=== PATIENT | male | born 1995 | race Hispanic/Latino ===

== ENCOUNTER 2024-02-07 12:39 | Inpatient (IN) | payer OTHER ==
[~2024-02-07] VITALS: Ht 172.7 cm; Wt 86.2 kg
[2024-02-07 12:58] LABS: BASOPHILS # (AUTO) 0.12 K/uL (0.00-0.20); BASOPHILS % (AUTO) 0.7 % (0.0-5.0); EOSINOPHILS % (AUTO) 0.6 % (0.0-8.0); HEMATOCRIT 54.4 % (42-54); IMMATURE GRANULOCYTE ABSOLUTE 0.11 K/uL (0-1); LYMPHOCYTES # (AUTO) 2.4 K/uL (1.0-4.8); LYMPHOCYTES % (AUTO) 13.4 % (21.0-51.0); MEAN CORPUSCULAR HEMOGLOBIN 26.5 pg (27.0-33.0); MEAN CORPUSCULAR HGB CONC 33.1 g/dL (32.0-36.0); MONOCYTES # (AUTO) 0.9 K/uL (0.1-1.0); MONOCYTES % (AUTO) 4.8 % (3.0-13.0); NEUTROPHILS # (AUTO) 14.5 K/uL (1.8-7.7); NEUTROPHILS % (AUTO) 79.9 % (40.0-77.0); PLATELET COUNT (AUTO) 392 K/uL (130-400); RED CELL DISTRIBUTION WIDTH 14.7 % (11.0-15.5); WHITE BLOOD COUNT (AUTO) 18.2 K/uL (4.8-10.8)
[2024-02-07] MEDS: 0.9%NACL 1000ML 2,052 ML IV ONE (13:00)
[2024-02-07 13:02] LABS: CREATININE 2.1 mg/dL (0.5-1.3); POTASSIUM 3.3 mmol/L (3.5-5.1)
[2024-02-07 13:17] LABS: ALBUMIN 5.3 g/dL (3.5-5.0); BILIRUBIN,TOTAL 0.7 mg/dL (0.2-1.0); TOTAL PROTEIN, SERUM 10.5 g/dL (6.0-8.3)
[2024-02-07] MEDS: POTASSIUM BICARB/CIT AC 25 MEQ TABLET.EFF PO ONE (13:42)
[2024-02-07 14:41] LABS: APPEARANCE,URINE CLOUDY (CLEAR); BILIRUBIN,URINE NEGATIVE (NEGATIVE); COLOR,URINE YELLOW (YELLOW); GLUCOSE, URINE (UA) NEGATIVE (NEGATIVE); KETONES,URINE NEGATIVE (NEGATIVE); LEUKOCYTE ESTERASE ,URINE NEGATIVE Leu/uL (NEGATIVE); NITRATE,URINE NEGATIVE (NEGATIVE); OCCULT BLOOD,URINE NEGATIVE (NEGATIVE); PH,URINE 5.5 (5.0-8.0); PROTEIN,URINE 30 mg/dL (NEGATIVE); UROBILINOGEN,URINE 0.2 mg/dL (0.2-1.0)
[2024-02-07] MEDS: CEFTRIAXONE 2GM VIAL IVPB ONE (15:09)
[2024-02-07 15:12] LABS: AMPHET/METH SCREEN,URINE NEGATIVE (NEGATIVE); BARBITURATE SCREEN, URINE NEGATIVE (NEGATIVE); BENZODIAZEPINES SCREEN,URINE NEGATIVE (NEGATIVE); CANNABINOID SCREEN,URINE POSITIVE (NEGATIVE); COCAINE SCREEN,URINE NEGATIVE (NEGATIVE); OPIATE SCREEN,URINE NEGATIVE (NEGATIVE); PHENCYCLIDINE SCREEN,URINE NEGATIVE (NEGATIVE)
[2024-02-07 15:56] LABS: ADD UA MICROSCOPIC YES
[2024-02-07] MEDS ORDERED: ACETAMINOPHEN 500 MG TABLET PO PRN (16:00)
[2024-02-07 16:01] LABS: MUCUS,URINE RARE LPF (None Seen); OTHER CASTS, URINE 15 /LPF (None Seen); RBC,URINE 0-1 /HPF (0-1)
[2024-02-07] MEDS: DOXYCYCLINE 100MG+NS 250ML 250 ML IV SCH (16:05)
[2024-02-07] MEDS: 0.9%NACL 1000ML 1,000 ML IV SCH (16:06)
[2024-02-07 17:01] LABS: HEMOGLOBIN A1C 5.4 % (4.0-6.0)
[2024-02-07 17:14] LABS: SARS-CoV-2, RNA, NAAT NEGATIVE SARS CoV-2 (NEGATIVE)
[2024-02-07 17:22] LABS: INFLUENZA TYPE A Negative For Type A (NEGATIVE); INFLUENZA TYPE B Negative For Type B (NEGATIVE)
[2024-02-07 17:23] LABS: CREATININE,URINE RANDOM 256.48 mg/dL (30-135)
[2024-02-07 18:00] VITALS: BP 138/78; PULSE 79; RESP 18
[2024-02-07 19:00] VITALS: BP 157/68; PULSE 58; RESP 16
[2024-02-07] MEDS: Vitamin B Complex/Vit C/Folic Acid PO ONE (20:00)
[2024-02-07 23:00] VITALS: BP 116/71; PULSE 70; RESP 16
[2024-02-08 03:00] VITALS: BP 133/69; PULSE 91; RESP 16
[2024-02-08 05:08] LABS: BASOPHILS # (AUTO) 0.09 K/uL (0.00-0.20); BASOPHILS % (AUTO) 0.8 % (0.0-5.0); EOSINOPHILS # (AUTO) 0.36 K/uL (0.00-0.70); EOSINOPHILS % (AUTO) 3.3 % (0.0-8.0); IMMATURE GRANULOCYTE ABSOLUTE 0.04 K/uL (0-1); LYMPHOCYTES # (AUTO) 3.7 K/uL (1.0-4.8); LYMPHOCYTES % (AUTO) 33.9 % (21.0-51.0); MEAN CORPUSCULAR HEMOGLOBIN 26.8 pg (27.0-33.0); MEAN CORPUSCULAR HGB CONC 32.3 g/dL (32.0-36.0); MONOCYTES # (AUTO) 0.7 K/uL (0.1-1.0); MONOCYTES % (AUTO) 6.8 % (3.0-13.0); NEUTROPHILS # (AUTO) 5.9 K/uL (1.8-7.7); NEUTROPHILS % (AUTO) 54.8 % (40.0-77.0); PLATELET COUNT (AUTO) 304 K/uL (130-400); RED BLOOD CELL COUNT(AUTO) 5.18 MIL/uL (4.50-6.20); RED CELL DISTRIBUTION WIDTH 13.8 % (11.0-15.5); WHITE BLOOD COUNT (AUTO) 10.8 K/uL (4.8-10.8)
[2024-02-08 06:34] LABS: ALBUMIN 3.1 g/dL (3.5-5.0); BILIRUBIN,TOTAL 0.3 mg/dL (0.2-1.0); MAGNESIUM 1.9 mg/dL (1.80-2.40); PHOSPHORUS 2.8 mg/dL (2.5-4.9); POTASSIUM 3.6 mmol/L (3.5-5.1); TOTAL PROTEIN, SERUM 6.5 g/dL (6.0-8.3)
[2024-02-08 08:00] VITALS: BP 126/69; PULSE 80; RESP 18; O2SAT 99
[2024-02-08] MEDS: CEFTRIAXONE 2GM VIAL IVPB SCH (08:29)
[2024-02-08] MEDS: THIAMINE HCL 100 MG/ML 2ML VIAL IM SCH (08:29)
[2024-02-08] MEDS: FAMOTIDINE 20MG TAB PO SCH (11:00)
[2024-02-08] MEDS: 0.9%NACL 1000ML 1,000 ML IV SCH (11:00)
[2024-02-08 12:00] VITALS: BP 129/65; PULSE 72; RESP 18
[2024-02-08 16:00] VITALS: BP 122/74; PULSE 70; RESP 20
[2024-02-08 19:00] VITALS: BP 133/67; PULSE 79; RESP 20
[2024-02-08 19:30] VITALS: O2SAT 99
[2024-02-09] VITALS: BP 115/61; PULSE 68; RESP 20
[2024-02-09 04:00] VITALS: BP 120/62; PULSE 72; RESP 20
[2024-02-09 05:55] LABS: ALBUMIN 3.1 g/dL (3.5-5.0); BILIRUBIN,TOTAL 0.8 mg/dL (0.2-1.0); CREATININE 0.8 mg/dL (0.5-1.3); MAGNESIUM 1.9 mg/dL (1.80-2.40); POTASSIUM 4.2 mmol/L (3.5-5.1); TOTAL PROTEIN, SERUM 6.5 g/dL (6.0-8.3)
[2024-02-09 07:40] VITALS: BP 17/51; PULSE 68; RESP 18
[2024-02-09 08:00] VITALS: BP 117/51; O2SAT 100
[2024-02-09] MEDS: ENOXAPARIN SODIUM 30 MG/0.3 ML SQ SCH (09:38)
[2024-02-09 11:57] VITALS: BP 119/59; PULSE 60; RESP 18
== END 2024-02-09 13:25 | disposition home or self-care (01) | DRG 683 ==
LOC: EDH 12:39 → EDBD 12:39 → EDHIP 15:43 → 3BH 17:29
PROVIDERS: ADMIT Internal Medicine; ATTEND Internal Medicine
DX: N17.9 Acute kidney failure, unspecified (principal); E87.1 Hypo-osmolality and hyponatremia; M62.82 Rhabdomyolysis; M62.838 Other muscle spasm; Z20.822 Contact with and (suspected) exposure to COVID-19; E86.0 Dehydration; E87.6 Hypokalemia; E11.65 Type 2 diabetes mellitus with hyperglycemia; D64.9 Anemia, unspecified; F17.210 Nicotine dependence, cigarettes, uncomplicated; J35.1 Hypertrophy of tonsils; Z82.49 Family history of ischemic heart disease and other diseases of the circulatory system; F12.10 Cannabis abuse, uncomplicated; F10.90 Alcohol use, unspecified, uncomplicated; R79.89 Other specified abnormal findings of blood chemistry; Z71.6 Tobacco abuse counseling; Z90.49 Acquired absence of other specified parts of digestive tract
CPT/HCPCS: 36415; 71045; 76700; 80053; 80305; 81001; 82010; 82550; 82570; 82948; 83036; 83605; 83735; 84100; 84156; 84300; 84443; 84484; 85025; 86757; 87040; 87635; 87804; 93005; 93970; G0378; J0696; J1650; J3411; J3490; J7030